=== PATIENT | female | born 1940 | race Caucasian/White ===

== ENCOUNTER 2024-11-17 18:37 | Emergency (ER) | payer OTHER, BC ==
[~2024-11-17] VITALS: Ht 162.6 cm; Wt 65.9 kg
--- NOTE | 2024-11-17 19:41 | ED.PDOC ---
HPI (NEURO) HPI Comments This patient is a pleasant 84 y.o female coming from assisted living with a an aid, presents to the ED for a chief complaint of a generalized headache that started three days ago and has been gradually worsening. Patient had a fall three weeks ago, diagnosed with chest wall contusion but at that time never had a CT head done. Patient reports headache migrates front to back and has no alleviating factors. Patient denies any nausea, vomiting, diarrhea, fever, chills, dizziness. Patient is non toxic appearing. Chief Complaint: Headache Time Seen by MD: 19:35 Reviewed Notes: Nurses Notes, Medications, Allergies Information Source: Patient, Friend Mode of Arrival: Ambulatory Severity: Moderate Headache Severity: Moderate Timing: Weeks (2-3) Duration: Since onset Prehospital treatment: None Headache Location: Generalized Onset: At rest Circumstances: Spontaneous Symptoms: None History of: Hypertension Modifying factors: Nothing Associated Signs and Symptoms: Headache Past Medical History PAST MEDICAL HISTORY: HTN Past Medical History (Other): Patient has a recent fall that may have included head trauma Surgical History: Denies all surgeries MANAGEMENT COORDINATOR History: No Pertinent MANAGEMENT COORDINATOR History Family History Family History: Reviewed,noncontributory to illness Social History Smoker: Non-Smoker Alcohol: Denies ETOH Use Drugs: Denies Drug Use Lives In: Home Constitutional: denies: chills, diaphoresis, fatigue, fever, malaise, sweats, weakness, others EENTM: denies: blurred vision, double vision, ear bleeding, ear discharge, ear drainage, ear pain, ear ringing, eye pain, eye redness, hearing loss, mouth pain, mouth swelling, nasal discharge, nose bleeding, nose congestion, nose pain, photophobia, tearing, throat pain, throat swelling, voice changes, others Respiratory: denies: cough, hemoptysis, orthopnea, SOB at rest, shortness of breath, SOB with excertion, stridor, wheezing, others Cardiovascular: denies: chest pain, dizzy spells, diaphoresis, Dyspnea on exertion, edema, irregular heart beat, left arm pain, lightheadedness, palpitations, PND, syncope, others Gastrointestinal: denies: abdomen distended, abdominal pain, blood streaked bowels, constipated, diarrhea, dysphagia, difficulty swallowing, hematemesis, melena, nausea, poor appetite, poor fluid intake, rectal bleeding, rectal pain, vomiting, others Genitourinary: denies: abnormal vagina bleeding, burning, dyspareunia, dysuria, flank pain, frequency, hematuria, incontinence, pain, , vagina discharge, urgency, others Neurological: reports: headache; denies: dizziness, fainting, left sided numbness, left sided weakness, numbness, paresthesia, pre-existing deficit, right sided numbness, right sided weakness, seizure, speech problems, tingling, tremors, weakness, others Musculoskeletal: denies: back pain, gout, joint pain, joint swelling, muscle pain, muscle stiffness, neck pain, others Integumetry: denies: bruises, change in color, change in hair/nails, dryness, laceration, lesions, lumps, rash, wounds, others Allergic/Immunocompromised: denies: Difficulty Healing, Frequent Infections, H oral, Itching, others Hematologic/Lymphatic: denies: anemia, blood clots, easy bleeding, easy bruising, swollen glands, others Endocrine: denies: excessive hunger, excessive sweating, excessive thirst, excessive urination, flushing, intolerance to cold, intolerance to heat, unexplained weight gain, unexplained weight loss, others Psychiatric: denies: anxiety, bipolar disorder, depression, hopeless, panic disorder, schizophrenia, sleepless, suicidal, others All Other Systems: Reviewed and Negative Physical Exam General Appearance: Moderate Distress ([id number] distress due to headache pain concerns. Patient was pleasant and did not look definitively toxic.), Normal HEENT: Head (Cranial exam was unremarkable. No skull depressions or def ormities. No signs of trauma. Patient did not display any signs of mental status concerns.), Normal ENT Inspection, Pharynx Normal, TMs Normal Neck: Full Range of Motion, Non-Tender, Normal, Normal Inspection Respiratory: Chest Non-Tender, Lungs Clear, No Accessory Muscle Use, No Respiratory Distress, Normal Breath Sounds Cardiovascular: No Edema, No JVD, No Murmur, No Gallop, Normal Peripheral Pulses, Regular Rate/Rhythm Breast Exam: Deferred Gastrointestinal: No Organomegaly, Non Tender, No Pulsatile Mass, Normal Bowel Sounds, Soft Genitalia: Deferred Pelvic: Deferred Rectal: Deferred Extremities: Other (Patient ambulates with a wheelchair) Neurologic: Alert, Normal Affect, Normal Mood Cerebellar Function: NOT DONE Reflexes: NOT DONE Skin: Dry, Normal Color, Warm Lymphatic: No Adenopathy Was a procedure done? Was a procedure done?: No Differential Diagnosis (SZ) Headache: Cluster, Migraine, Closed Head Injury, Subarachnoid Hemorrhage X-Ray, Labs, Meds, VS Vital Signs Date Time Temp Pulse Resp B/P (MAP) Pulse Ox O2 Delivery O2 Flow Rate FiO2 11/17/24 19:00 97.9 88 16 160/74 (102) 98 97.9 X-Ray, Labs, Meds, VS Comment All studies performed the ED were evaluated by me personally. Head CT was unremarkable for any acute intracranial process or skull fracture. Patient may be having headaches due to a postconcussive concerns. Patient responded well to medication dispensed. Advised patient follow up with her primary care provider for discussions related to headache concerns. Time of 1ST Reevaluation: 19:41 Reevaluation 1ST: Improved Consultation: PCP Patient Education/Counseling: Diagnosis, Treatment, Prognosis Family Education/Counseling: Diagnosis, Treatment, No Family Present Departure 1 Departure Time of Disposition: 20:17 Impression: Primary Impression: Headache Additional Impression: Fall Disposition: HOME / SELF CARE / HOMELESS Condition: Stable Additional Instructions: Advised patient utilize medication as needed for symptomatic pain relief. Patient should follow up with the primary care provider for discussions related to today's visit and her recent headache concerns. e-Prescriptions Hydrocodone-Acetaminophen (Hydrocodone Bitartrate/AC 5-325 mg) 1 Tab Tab 1 TAB PO Q8HP PRN, #10 TAB Prov: SALMA HAWTHORNE PAC 11/17/24 Discharged With: Self, [employer] Critical Care Note Critical Care Time?: No Stability Stability form required: No I personally scribed for SALMA HAWTHORNE PAC ([email or web address]) on 11/17/24 at 19:41. Electronically submitted by Ling العلي ([facility]). SALMA HAWTHORNE PAC Nov 17, 2024 19:41
--- NOTE | 2024-11-17 20:01 | DVH ---
CT HEAD WITHOUT CONTRAST INDICATION: Trauma/head injury EXAM DATE: 11/17/2024 07:29 PM COMPARISON: None PROCEDURE: CT scans of the head were obtained from the vertex to the skull base. Sagittal and coronal reconstructions were provided. All CT scans at this medical facility are performed using dose modulation techniques as appropriate t o a performed exam including the following: Automated exposure control was utilized; adjustment of th e MA and/or KV according to patient size; and use of iterative reconstruction technique. FINDINGS: There is no acute intracranial hemorrhage, extraaxial fluid collection, mass effect, midline shift. T here is generalized parenchymal volume loss with prominence of the society and ventricles. There is m ild periventricular and subcortical white matter hypoattenuation, nonspecific. Paranasal sinuses and mastoid air cells are clear. The calvarium is intact IMPRESSION: 1. No acute intracranial findings 2. Generalized parenchymal volume loss
[2024-11-17] MEDS ORDERED: HYDR-4902 PO (20:18)
[2024-11-17 20:40] VITALS: BP 178/89; PULSE 67; RESP 14; TEMP 97.9; O2SAT 94
[2024-11-17] MEDS: HYDROcodone-ACET 5/325MG TAB PO ONE (20:45)
== END 2024-11-17 20:57 | disposition home or self-care (01) ==
LOC: ER 18:37
DX: R51.9 Headache, unspecified (principal); I10 Essential (primary) hypertension; W19.XXXA Unspecified fall, initial encounter; Y93.89 Activity, other specified; Y92.89 Other specified places as the place of occurrence of the external cause; Y99.8 Other external cause status
CPT/HCPCS: 70450